=== PATIENT | male | born 2000 | race Caucasian/White ===

== ENCOUNTER 2022-12-09 13:23 | Emergency (ER) | payer OTHER ==
[2022-12-09] MEDS ORDERED: Gabapentin 300 MG Cap PO STA (13:55)
[2022-12-09 14:06] LABS: BASOPHILS PERCENT AUTO 0.9 % (0.3-3.8); EOSINOPHILS ABSOLUTE AUTO 0.2 x10-3/uL (0.0-0.6); EOSINOPHILS PERCENT AUTO 4.7 % (0.1-6.8); HEMATOCRIT 46.4 % (38.3-50.1); HEMOGLOBIN 15.6 g/dL (12.9-17.7); LYMPHOCYTES ABSOLUTE AUTO 1.3 x10-3/uL (0.5-4.5); LYMPHOCYTES PERCENT AUTO 33.2 % (15.8-45.3); MEAN CORPUSCULAR HGB CONC 33.6 g/dL (28.7-35.3); MEAN CORPUSCULAR VOLUME 92.4 fL (80.8-98.7); MEAN PLATELET VOLUME 8.9 fL (6.7-11.0); MONOCYTES ABSOLUTE AUTO 0.3 x10-3/uL (0.0-1.2); MONOCYTES PERCENT AUTO 8.7 % (5.5-15.2); NEUTROPHILS ABSOLUTE AUTO 2.1 x10-3/uL (1.7-6.9); NEUTROPHILS PERCENT AUTO 52.5 % (40.3-71.8); PLATELET COUNT,PLT 255 x10(3)uL (117-477); RED BLOOD CELL COUNT 5.02 x10(6)uL (3.90-5.90); WHITE BLOOD CELL COUNT,WBC 3.9 x10-3/uL (3.2-10.1)
[2022-12-09 14:09] LABS: BLOOD UREA NITROGEN,BUN 10 mg/dL (7-18); BUN/CREATININE RATIO 11.1 (9-20); CALCIUM 9.7 mg/dL (8.6-10.2); CARBON DIOXIDE,CO2 28 mmol/L (21-32); CHLORIDE,CL 104 mmol/L (100-110); CREATININE 0.9 mg/dL (0.70-1.30); ESTIMATED GFR 124 mL/min (>60); GLUCOSE RANDOM 104 mg/dL (80-116); SODIUM,NA 141 mmol/L (135-145)
[2022-12-09 14:15] LABS: A/G RATIO 1.2; ALANINE AMINOTRANSFERASE,ALT 26 U/L (12-36); ALBUMIN 4.7 g/dL (3.5-5.2); ALKALINE PHOSPHATASE 83 IU/L (56-112); ASPARTATE AMNIOTRANSFERASE,AST 14 IU/L (5-25); PROTEIN TOTAL,TP 8.6 g/dL (6.0-8.0)
== END 2022-12-09 15:15 | disposition home or self-care (01) ==
LOC: FB.ED 13:23
DX: M54.10 Radiculopathy, site unspecified (principal)
CPT/HCPCS: 36415; 80053; 85025; 99284; A9270